=== PATIENT | female | born 2005 | race Caucasian/White ===

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

== ENCOUNTER 2024-03-11 18:06 | Emergency (ER) | payer OTHER ==
[~2024-03-11] VITALS: Ht 170.2 cm; Wt 81.0 kg
[2024-03-11 18:12] VITALS: PULSE 133
[2024-03-11 18:24] VITALS: BP 122/79; RESP 18; TEMP 98.6; O2SAT 98
[2024-03-11 18:47] LABS: BASOPHILS % 0.4 % (0.0-2.0); EOSINOPHILS % 0.4 % (0.0-5.0); HEMATOCRIT. 43.6 % (36.0-48.0); HEMOGLOBIN. 14.4 g/dL (12.0-16.0); MEAN CORPUSCULAR HEMOGLOBIN 26.9 pg (28.0-32.0); MEAN CORPUSCULAR HGB CONC 33.1 g/dL (31.0-37.0); MEAN CORPUSCULAR VOLUME 81.4 fL (81.0-99.0); MONOCYTES % 4.9 % (2.0-8.0); NEUTROPHILS % 81.3 % (40.0-76.0); PLATELET 311 x1000/uL (130-400); RED BLOOD CELL COUNT 5.36 mill/uL (4.2-5.4); RED CELL DISTRIBUTION WIDTH 13.4 % (11.6-14.6); WHITE BLOOD COUNT 10.6 x1000/uL (4.5-11.0)
[2024-03-11 18:53] LABS: CHLORIDE 105 mEq/L (98-107); POTASSIUM 3.5 mEq/L (3.5-5.1); SODIUM 138 mEq/L (136-145)
[2024-03-11 18:54] LABS: CARBON DIOXIDE 22 mEq/L (21-32)
[2024-03-11 18:55] LABS: CALCIUM 9.7 mg/dL (8.7-10.4)
[2024-03-11 18:59] LABS: CREATININE 0.8 mg/dL (0.6-1.0); GLUCOSE 130 mg/dL (70-105); UREA NITROGEN BLOOD 10 mg/dL (9-23)
[2024-03-11 19:07] LABS: TROPONIN I HIGH SENSITIVITY < 4 ng/L (3.0-34)
[2024-03-11 23:24] LABS: HCG SCREEN NEGATIVE
== END 2024-03-11 23:52 | disposition home or self-care (01) ==
LOC: ER 18:06
DX: R55 Syncope and collapse (principal)
CPT/HCPCS: 36415; 80048; 84484; 84703; 85025; 93005; 99284